=== PATIENT | male | born 1980 ===

== ENCOUNTER 2017-11-04 06:51 | Emergency (ER) | payer OTHER ==
[2017-11-04 07:10] VITALS: BP 142/91; PULSE 103; RESP 16; TEMP 99.4; O2SAT 98
[2017-11-04 08:18] LABS: URINE BILIRUBIN NEGATIVE (NEGATIVE); URINE BLOOD NEGATIVE (NEGATIVE); URINE CLARITY CLEAR (Clear); URINE COLOR YELLOW (YELLOW); URINE GLUCOSE (UA) NEG (Normal); URINE LEUKOCYTE ESTERASE NEG Leu/uL (Negative); URINE PROTEIN NEGATIVE (NEGATIVE); URINE UROBILINOGEN 0.2-1.0 mg/dL (0.2-1.0)
--- NOTE | 2017-11-04 08:20 | ED PDOC ---
HPI: Male Pain Time Seen by Provider: 11/04/17 07:09 Chief Complaint (Nursing): Male Genitourinary Chief Complaint (Provider): Male Genitourinary History Per: Patient History/Exam Limitations: no limitations Onset/Duration Of Symptoms: Hrs Current Symptoms Are (Timing): Still Present Additional Complaint(s): 36 year old male presents to the emergency department accompanied by with a complaint of pain to the penis after having sexual intercourse last night. Reports pain started after he head a snap. Patient denies any problems or difficulty with urinating and testicular pain. Past Medical History Reviewed: Historical Data, Nursing Documentation, Vital Signs Vital Signs: Last Vital Signs Temp 99.4 F 11/04/17 07:07 Pulse 103 H 11/04/17 07:07 Resp 16 11/04/17 07:07 BP 142/91 H 11/04/17 07:07 Pulse Ox 98 11/04/17 07:07 - Medical History PMH: No Chronic Diseases - Surgical History Surgical History: No Surg Hx - Family History Family History: States: Unknown Family Hx - Social History Current smoker - smoking cessation education provided: Yes (Heavy Smoker > 10 Cigarettes Daily) Alcohol: None Drugs: Denies - Allergies Allergies/Adverse Reactions: Allergies Allergy/AdvReac Type Severity Reaction Status Date / Time No Known Allergies Allergy Verified 11/04/17 07:11 Review of Systems ROS Statement: Except As Marked, All Systems Reviewed And Found Negative (As per HPI, otherwise negative) Genitourinary Male: Positive for: Penile Pain. Negative for: Dysuria, Frequency , Incontinence, Hematuria, Other (Testicular pain) Physical Exam - Reviewed Nursing Documentation Reviewed: Yes Vital Signs Reviewed: Yes - Physical Exam Appears: Positive for: No Acute Distress Head Exam: Positive for: NORMAL INSPECTION Skin: Positive for: Normal Color, Warm, Dry Male Genital Exam: Positive for: other (Uncircumcised. Dilated blood vessel on the anterior side of penile shaft. ). Negative for: erythema, lesions, scrotum tenderness (R), scrotum tenderness (L), testicular tenderness (R), testicular tenderness (L), urethral discharge Neurologic/Psych: Positive for: Alert, Oriented (x3) - ECG O2 Sat by Pulse Oximetry: 98 (RA) Pulse Ox Interpretation: Normal Medical Decision Making Medical Decision Making: Time: 814 Initial Impression: Penile pain Initial Plan: --Urine DIP --Urine Culture --Urinalysis --Chlamydia/GC RNA, TMA --Reevaluation Time: 829 --Consulted obtained from patient for images that were reviewed by Dr. Herrera. --Reports it is non consistent with penile fracture. --Recommends to wrap penis with coban dressing and ice today. --Follow up with office tomorrow, 11/05/2018, from 1-6pm. Scribe Attestation: Documented by Oly Melendrez, acting as a scribe for Jennifer Martins MD. Provider Scribe Attestation: All medical record entries made by the Scribe were at my direction and personally dictated by me. I have reviewed the chart and agree that the record accurately reflects my personal performance of the history, physical exam, medical decision making, and the department course for this patient. I have also personally directed, reviewed, and agree with the discharge instructions and disposition. Disposition - Clinical Impression Clinical Impression: Penile trauma - Disposition Referrals: Jarad Rodriguez MD [Medical Doctor] - Disposition: Routine/Home Disposition Time: 10:12 Condition: STABLE Additional Instructions: FOLLOW-UP WITH DR. RODRIGUEZ TOMORROW FROM 1-6 PM. Forms: Etece (Sami) Print Language: IRISH
[2017-11-04] MEDS ORDERED: Oxycodone/Acetaminophen 5/325 mg Tab PO STA (09:57)
[2017-11-04] MEDS ORDERED: Oxycodone/Acetaminophen 5/325 mg Tab ONE (10:07)
== END 2017-11-04 10:34 | disposition home or self-care (01) ==
LOC: H.ER 06:51
DX: S39.94XA Unspecified injury of external genitals, initial encounter (principal); F17.210 Nicotine dependence, cigarettes, uncomplicated